=== PATIENT | female | born 1990 | race Caucasian/White ===

== ENCOUNTER → 2021-05-23 | Outpatient (CLI) | payer BC, OTHER ==
[~2021-05-23] MED LIST: ACCUTANE40 MG PO; APRI1 EACH PO; CLARITIN-D 121 EACH PO; DIGOXIN250 MCG PO; ENALAPRIL MALEA10 M2 PO; FLONASE SPRAY; SINGULAIR 10 MG10 M1 PO
== END ==
LOC: SJCVCIMAG 08:53
PROVIDERS: ATTEND Internal Medicine Cardiovascular Disease
DX: I42.9 Cardiomyopathy, unspecified (principal); Z79.899 Other long term (current) drug therapy; Z88.8 Allergy status to other drugs, medicaments and biological substances